=== PATIENT | female | born 1995 | race Caucasian/White ===

== ENCOUNTER 2023-10-23 08:43 | Outpatient (REF) | payer OTHER, SELFPAY ==
--- NOTE | ~2023-10-23 | US_ITS ---
EXAMINATION: US RETROPERITONEAL COMPLETE (RENAL) CLINICAL INFORMATION: Urinary urgency. COMPARISON: None available. TECHNIQUE: Real-time imaging of the kidneys and bladder. FINDINGS: RIGHT KIDNEY: 11.6 x 4.7 x 5.6 cm (SAG x AP x TRV). The kidney is normal in size, contour, and echogenicity. Renal cortical thickness is normal. No calculi or focal parenchymal lesions. There is an extrarenal right pelvis, without jamila hydronephrosis. LEFT KIDNEY: 11.3 x 4.7 x 5.4 cm (SAG x AP x TRV). The kidney is normal in size, contour, and echogenicity. Renal cortical thickness is normal. No calculi or focal parenchymal lesions. No hydronephrosis. BLADDER: Well distended and normal. Bilateral ureteral jets are demonstrated. Prevoid bladder volume is 332 mL. Postvoid bladder volume is 41 mL. US/US retroperitoneal comp IMPRESSION: Unremarkable examination.
== END 2023-10-23 08:44 | disposition home or self-care (01) ==
LOC: HO.UMASIMG 08:43
PROVIDERS: Visit Provider Family Medicine
DX: R39.15 Urgency of urination (principal); R00.2 Palpitations
CPT/HCPCS: 76770